=== PATIENT | female | born 1975 | race Caucasian/White ===

== ENCOUNTER 2017-02-20 03:00 | Emergency (ER) | payer SELFPAY ==
[~2017-02-20] VITALS: Ht 167.6 cm; Wt 90.7 kg
[2017-02-20 03:06] VITALS: BP 141/99
--- NOTE | 2017-02-20 03:13 | NUR ---
Rudolph squires in [facility] - 02/20/17 at 0326 by STARLA DYLON CARRERA. TAKEN TO OF
--- NOTE | 2017-02-20 03:27 | NUR ---
Dr. Ramos evaluating patient
--- NOTE | 2017-02-20 03:47 | NUR ---
PT ERICA CARRERA. TAKEN TO OF
[2017-02-20] MEDS ORDERED: HYDROcodone/APAP 10/325 MG 1 TAB TAB PO STA (04:10)
--- NOTE | 2017-02-20 04:24 | NUR ---
X-Ray WITH PATIENT
[2017-02-20 06:09] VITALS: BP 124/87
--- NOTE | 2017-02-20 06:09 | NUR ---
Patient discharged with v/s stable. Written and verbal after care instructions given and explained. Patient alert, oriented and verbalized understanding of instructions. Ambulatory with steady gait. All questions addressed prior to discharge. ID band removed. Patient advised to follow up with PMD FOR ORTHO REFERAL CD WITH XRAY PICS GIVEN TO PT. Rx of MOBIC, AND NORCO given. Patient educated on indication of medication including possible reaction and side effects. Opportunity to ask questions provided and answered.
== END 2017-02-20 06:09 | disposition home or self-care (01) ==
LOC: MED 03:00
DX: S82.001A Unspecified fracture of right patella, initial encounter for closed fracture (principal); X58.XXXA Exposure to other specified factors, initial encounter; Y93.89 Activity, other specified; Y92.89 Other specified places as the place of occurrence of the external cause; Y99.8 Other external cause status
CPT/HCPCS: 29505; 73560; 99284; Q0092